=== PATIENT | male | born 1965 | race Caucasian/White ===

== ENCOUNTER 2024-09-24 13:08 | Emergency (ER) | payer MEDICARE, MEDICAID ==
[~2024-09-24] VITALS: Ht 177.8 cm; Wt 100.0 kg
[2024-09-24 13:09] VITALS: O2SAT 97
[2024-09-24] MEDS ORDERED: CICL34.62 TP (14:39)
[2024-09-24 21:21] VITALS: BP 147/102; PULSE 82; RESP 15; TEMP 36.7; O2SAT 97
== END 2024-09-24 21:31 ==
LOC: ER 13:08
DX: B35.1 Tinea unguium (principal); Z79.899 Other long term (current) drug therapy
CPT/HCPCS: 99283